=== PATIENT | female | born 1990 | race Caucasian/White ===

== ENCOUNTER 2017-07-28 05:30 | Inpatient (IN) | payer MEDICAID ==
[2017-07-28] MEDS ORDERED: LACTATED RINGER'S 1,000 ML IV (07:27)
[2017-07-28] MEDS ORDERED: METHYLERGONOVINE 0.2 MG INJ IM ×2 (07:30→16:30)
[2017-07-28] MEDS ORDERED: IBUPROFEN 600 MG TAB PO (07:30)
[2017-07-28] MEDS ORDERED: OXYTOCIN 30 UNITS/LR 500 ML IV ×4 (07:30→16:30)
[2017-07-28] MEDS ORDERED: BUTORPHANOL 2 MG INJ IV (07:30)
[2017-07-28] MEDS ORDERED: MISOPROSTOL 200 MCG TAB PR ×2 (07:30→16:30)
[2017-07-28] MEDS ORDERED: CARBOPROST 250 MCG INJ IM ×2 (07:30→16:30)
[2017-07-28] MEDS ORDERED: LIDOCAINE 1% (MPF) 30 ML INJ INJ (07:30)
[2017-07-28] MEDS: LACTATED RINGER'S 1,000 ML IV ×3 (08:03→22:39)
[2017-07-28] MEDS: AMPICILLIN 2 GM/NS (PMX) 100 ML IV (08:06)
[2017-07-28 08:12] LABS: ADD MAN DIFF? NO
[2017-07-28 08:22] LABS: ABNORMAL IP MESSAGE 1; BASOPHILS % 0.2 % (0.0-2.0); EOSINOPHILS % 0.1 % (0.0-7.0); HEMATOCRIT 30.6 % (37.0-47.0); HEMOGLOBIN 9.7 g/dl (12.0-16.0); LYMPHOCYTES # 0.8 10^3/ul (0.8-2.9); LYMPHOCYTES % 4.3 % (15.0-51.0); MEAN CORPUSCULAR HEMOGLOBIN 21.8 pg (29.0-33.0); MEAN CORPUSCULAR HGB CONC 31.7 g/dl (32.0-37.0); MEAN CORPUSCULAR VOLUME 68.9 fl (82.0-101.0); MEAN PLATELET VOLUME 10.1 fl (7.4-10.4); MONOCYTE # 1.6 10^3/ul (0.3-0.9); MONOCYTES % 8.7 % (0.0-11.0); NEUTROPHIL # 15.8 10^3/ul (1.6-7.5); NEUTROPHILS % 85.9 % (39.0-77.0); PLATELET COUNT 244 10^3/UL (140-415); POSITIVE DIFF @See below; RED BLOOD COUNT 4.44 10^6/ul (4.20-5.40); RED CELL DISTRIBUTION WIDTH 16.2 % (11.5-14.5)
[2017-07-28 08:22] LABS: WHITE BLOOD COUNT 18.3 10^3/ul (4.8-10.8)
[2017-07-28 08:41] LABS: INR 1.07; PT RATIO 1.1
[2017-07-28 08:42] LABS: PARTIAL THROMBOPLASTIN TIME 31.8 Sec (25.0-35.0)
[2017-07-28] MEDS ORDERED: FENTAnyl 2MCG/ML-ROPIV 0.2% 100 ML (08:42)
[2017-07-28 08:47] LABS: ALANINE AMINOTRANSFERASE 20 IU/L (13-69); ALBUMIN 3.7 g/dl (3.3-4.9); ALBUMIN/GLOBULIN RATIO 1.08; ALKALINE PHOSPHATASE 316 IU/L (42-121); ANION GAP 16 (8-16); ASPARTATE AMINO TRANSFERASE 25 IU/L (15-46); BILIRUBIN,INDIRECT 0.3 mg/dl (0-1.1); BILIRUBIN,TOTAL 0.3 mg/dl (0.2-1.3); BLOOD UREA NITROGEN 15 mg/dl (7-20); CALCIUM 9.2 mg/dl (8.4-10.2); CARBON DIOXIDE 17 mmol/L (21-31); CHLORIDE 105 mmol/L (97-110); GLUCOSE 105 mg/dl (70-220); POTASSIUM 3.7 mmol/L (3.5-5.1); SODIUM 134 mmol/L (135-144); TOTAL PROTEIN 7.1 g/dl (6.1-8.1)
[2017-07-28] MEDS ORDERED: NALOXONE (0.4 MG/ML) INJ IV ×3 (09:00→17:30)
[2017-07-28] MEDS ORDERED: DIPHENHYDRAMINE 50 MG INJ IV ×3 (09:00→17:00)
[2017-07-28] MEDS ORDERED: EPHEDrine SULFATE 50 MG/5 ML SYG IV (09:00)
[2017-07-28] MEDS ORDERED: ONDANSETRON 4 MG INJ IV ×3 (09:00→17:00)
[2017-07-28 09:18] LABS: HEPATITIS B SURFACE ANTIGEN NEGATIVE (NEGATIVE)
[2017-07-28 09:29] LABS: HIV 1&2 ANTIBODY NEGATIVE (NEGATIVE)
[2017-07-28] MEDS: FENTAnyl 2MCG/ML-ROPIV 0.2% 100 ML BAG EPI (10:14)
[2017-07-28] MEDS: AMPICILLIN 1 GM/NS (PMX) 50 ML IV (11:48)
[2017-07-28] MEDS ORDERED: GENTAMICIN IV PER PHARMACY XX (12:00)
[2017-07-28] MEDS ORDERED: CEFAZOLIN 2 GM/50 ML (PMX) 50 ML IVPB (12:01)
[2017-07-28] MEDS ORDERED: ONDANSETRON 4 MG INJ (12:16)
[2017-07-28] MEDS ORDERED: METOCLOPRAMIDE 10 MG INJ (12:16)
[2017-07-28] MEDS ORDERED: LIDOCAINE 1.5%/EPI MPF (SDV) 30 ML VIAL (12:16)
[2017-07-28] MEDS ORDERED: morphine SULFATE/PF (10 MG/10 ML) INJ (12:16)
[2017-07-28] MEDS ORDERED: EPHEDrine SULFATE 50 MG/5 ML SYG (12:16)
[2017-07-28] MEDS ORDERED: OXYTOCIN 10 UNIT INJ ×2 (12:16→14:18)
[2017-07-28] MEDS: CEFAZOLIN 2 GM/50 ML (PMX) 50 ML IV (12:51)
[2017-07-28] MEDS ORDERED: MIDAZOLAM 1 MG/ML 2 ML INJ (12:54)
[2017-07-28] MEDS ORDERED: KETOROLAC 30 MG INJ IV (13:30)
[2017-07-28] MEDS ORDERED: morphine 2 MG INJ IV ×4 (13:30→17:30)
[2017-07-28] MEDS: morphine SULFATE/PF (10 MG/10 ML) INJ EPI (13:51)
[2017-07-28] MEDS: OXYTOCIN 30 UNITS/LR 500 ML IV ×3 (13:53→16:14)
[2017-07-28] MEDS ORDERED: OXYCODONE/ACETAMINOPHEN (5/325) TAB PO (16:30)
[2017-07-28] MEDS ORDERED: LANOLIN 7 GM TUBE TOP (16:30)
[2017-07-28] MEDS: KETOROLAC 30 MG INJ IV (17:33)
[2017-07-28] MEDS: IBUPROFEN 600 MG TAB PO (18:00)
[2017-07-28] MEDS: CEFAZOLIN 1 GM/50 ML (PMX) 50 ML IV (20:44)
[2017-07-28] MEDS: SENNA/DOCUSATE NA (8.6MG/50MG) TAB PO (21:00)
[2017-07-28 22:13] LABS: RAPID PLASMA REAGIN NONREACTIVE (NR)
[2017-07-29] MEDS: CEFAZOLIN 1 GM/50 ML (PMX) 50 ML IV ×2 (04:27→12:20)
[2017-07-29] MEDS: IBUPROFEN 600 MG TAB PO ×5 (06:00→23:25)
[2017-07-29] MEDS: SENNA/DOCUSATE NA (8.6MG/50MG) TAB PO ×2 (09:14→21:48)
[2017-07-29 10:03] LABS: ADD MAN DIFF? NO
[2017-07-29 10:08] LABS: BASOPHILS % 0.3 % (0.0-2.0); EOSINOPHILS # 0.2 10^3/ul (0.0-0.5); EOSINOPHILS % 1.5 % (0.0-7.0); HEMATOCRIT 25.2 % (37.0-47.0); HEMOGLOBIN 7.8 g/dl (12.0-16.0); LYMPHOCYTES # 0.7 10^3/ul (0.8-2.9); LYMPHOCYTES % 6.8 % (15.0-51.0); MEAN CORPUSCULAR HEMOGLOBIN 21.8 pg (29.0-33.0); MEAN CORPUSCULAR VOLUME 70.6 fl (82.0-101.0); MEAN PLATELET VOLUME 10.1 fl (7.4-10.4); MONOCYTE # 0.8 10^3/ul (0.3-0.9); MONOCYTES % 7.3 % (0.0-11.0); NEUTROPHIL # 8.6 10^3/ul (1.6-7.5); NEUTROPHILS % 83.6 % (39.0-77.0); PLATELET COUNT 213 10^3/UL (140-415); RED BLOOD COUNT 3.57 10^6/ul (4.20-5.40); RED CELL DISTRIBUTION WIDTH 16.2 % (11.5-14.5)
[2017-07-29 10:08] LABS: WHITE BLOOD COUNT 10.3 10^3/ul (4.8-10.8)
[2017-07-29] MEDS: KETOROLAC 30 MG INJ IV (11:23)
[2017-07-29 12:23] LABS: RUBELLA ANTIBODY - IGG 4.22 index; RUBELLA ANTIBODY - IGM <20.00 AU/mL
[2017-07-29] MEDS: LACTATED RINGER'S 1,000 ML IV ×3 (16:50→17:00)
[2017-07-30] MEDS: LACTATED RINGER'S 1,000 ML IV (01:00)
[2017-07-30] MEDS: IBUPROFEN 600 MG TAB PO ×3 (05:49→18:00)
[2017-07-30] MEDS: SENNA/DOCUSATE NA (8.6MG/50MG) TAB PO ×2 (09:00→21:00)
[2017-07-30] MEDS: DIPHTH/TET/ACEL PERTUSS (ADULT) 0.5 ML VIAL IM* (13:53)
[2017-07-30] MEDS: DOCUSATE SODIUM 100 MG CAP PO (21:00)
[2017-07-31] MEDS: POLYSACCHARIDE IRON COMPLEX CAP PO ×2 (00:06→08:53)
[2017-07-31] MEDS: IBUPROFEN 600 MG TAB PO ×3 (00:06→12:00)
[2017-07-31] MEDS: DOCUSATE SODIUM 100 MG CAP PO ×3 (09:00→16:37)
[2017-07-31] MEDS: SENNA/DOCUSATE NA (8.6MG/50MG) TAB PO (09:00)
[2017-07-31 11:01] LABS: ADD MAN DIFF? NO
[2017-07-31 11:20] LABS: WHITE BLOOD COUNT 6.3 10^3/ul (4.8-10.8)
[2017-07-31 11:20] LABS: BASOPHILS % 0.3 % (0.0-2.0); EOSINOPHILS # 0.2 10^3/ul (0.0-0.5); EOSINOPHILS % 3.3 % (0.0-7.0); HEMATOCRIT 25.6 % (37.0-47.0); HEMOGLOBIN 7.8 g/dl (12.0-16.0); LYMPHOCYTES # 0.7 10^3/ul (0.8-2.9); LYMPHOCYTES % 10.5 % (15.0-51.0); MEAN CORPUSCULAR HGB CONC 30.5 g/dl (32.0-37.0); MEAN CORPUSCULAR VOLUME 72.3 fl (82.0-101.0); MONOCYTE # 0.5 10^3/ul (0.3-0.9); MONOCYTES % 7.3 % (0.0-11.0); NEUTROPHIL # 4.9 10^3/ul (1.6-7.5); NEUTROPHILS % 77.2 % (39.0-77.0); PLATELET COUNT 282 10^3/UL (140-415); RED BLOOD COUNT 3.54 10^6/ul (4.20-5.40); RED CELL DISTRIBUTION WIDTH 16.8 % (11.5-14.5)
== END 2017-07-31 14:30 | disposition home or self-care (01) | DRG 766 ==
LOC: L-D 05:30 → PP1 15:50
PROC: 10D00Z1 Extraction of Products of Conception, Low, Open Approach (ICD-10-PCS; principal; 2017-07-28)
PROC: 3E033VJ Introduction of Other Hormone into Peripheral Vein, Percutaneous Approach (ICD-10-PCS; 2017-07-28)
DX: O76 Abnormality in fetal heart rate and rhythm complicating labor and delivery (principal); Z3A.39 39 weeks gestation of pregnancy; Z37.0 Single live birth
CPT/HCPCS: 62319; 76815; 76818; 80053; 85025; 85610; 85730; 86592; 86703; 86762; 86850; 86900; 86901; 87340; 94760